=== PATIENT | female | born 1995 | race Two or more races ===

== ENCOUNTER 2022-10-26 21:34 | Emergency (ER) | payer OTHER ==
[~2022-10-26] VITALS: Ht 162.6 cm; Wt 68.0 kg
--- NOTE | 2022-10-26 23:20 | NUR ---
AFTER BEING TRIAGE, PATIENT WAS PLACED BACK IN THE WAITING ROOM DUE TO NO BEDS AVAILABLE IN THE ER.
--- NOTE | 2022-10-27 01:00 | NUR ---
PATIENT WAS CALLED TO HAVE VITAL RE CHECK BUT WAS NOT PRESENT IN THE WAITING ROOM OR OUTSIDE OF ER.
--- NOTE | 2022-10-27 02:00 | NUR ---
PATIENT WAS CALLED TO HAVE VITAL RE CHECK BUT WAS NOT PRESENT IN THE WAITING ROOM OR OUTSIDE OF ER. PATIENT WAS TRIAGED BUT NOT SEEN BY ERMD.
== END 2022-10-27 02:00 | disposition left against medical advice (07) ==
LOC: ER 21:34
DX: Z53.21 Procedure and treatment not carried out due to patient leaving prior to being seen by health care provider (principal)
CPT/HCPCS: A4663